=== PATIENT | male | born 1980 | race Caucasian/White ===

== ENCOUNTER 2022-06-17 12:13 | Emergency (ER) | payer OTHER ==
--- OUTSIDE RECORDS SUMMARY | 2022-06-17 12:16 | XMS REPORT | Continuity of Care Document ---
:1980 Author Organization [facility] t Address [address] [place] [address] Care Team Providers Name Role Phone PCP, PATIENT DOES NOT HAVE A Primary Care Physician Unavaila ble RADIOLOGY Attending Clinician Unavailable Radiology Attending Clinician Unavailable Doctor Unassigned, Bevier Attending Clinician Unavailable Adama HOWELL, Jana Mcintosh Attending Clinician [phone] Sade Mcgill RN Attending Clinician Unavailable Only, Ang Db Test Attending Clinician Unavailable Roxie Montenegro MD Attending Clinician KOKI RAVI Admitting Clinician Unavailable Payers Payer Name Policy Type Policy Number Effective Date Expiration Date Roland garcia [employer] [id number] 2018 OUT OF NETWORK 00:00:00 Problems Condition Condition Condition Status Onset Resolution Last Treating Co mments Source Name Details Category Date Date Treatment Clinician Date Neck pain Neck pain Disease Active Uni vers 11-06 ity of 00:: [address] No known No known Disease Kelse y active active Rad problems problems Allergies, Adverse Reactions, Alerts Allergy Allergy Status Severity Reaction(s) Onset Inactive Treating Comm ents Source Name Type Date Date Clinician NO KNOWN Drug Active Univers ALLERGIE Class [facility] Social History Social Habit Start Date Stop Date Quantity Comments Source Exposure to Yes Blessing laird SARS-CoV-2 (event) Tobacco use and 2018-11-06 2018-11-06 Current user Univers [facility] exposure 00:00:00 00:00:00 [facility] Sex Assigned At [birth year] Blessing griffin 00:00:00 00:00:00 Smoking Status Start Date Stop Date Source Never smoked tobacco Blessing Seyb old Former smoker 2018-11-06 00:00:00 2018-11-06 00:00:00 [facility] Medications Ordered Filled Start Stop Current Ordering Indication Dosage Frequency Signature Comments Components Source Medication Medication Date Date Medication? Clinician (SIG) Name Name Amoxicillin Yes [id number] 1{tbl} Take 1 Blessing -Pot 9-23 tablet by Seybold Clavulanate 00:00: mouth 2 875-125 MG 00 times oral Tablet daily Albuterol Yes [id number] 2{puff} Q6H Inhale 2 Blessing HFA 108 (90 9-[address] ybold Base) 00:00: the lungs MCG/ACT IN 00 every 6 AERS hours as needed for wheezing Azithromyci 2020- No [id number] Take 2 Blessing n 250 MG 9-23 09-29 tablets by Seyb old oral Tablet 00:00: 04:59 mouth on 00 : day 1 then 1 tablet by mouth daily for 4 days thereafter . cyclobenzap Yes [id number] 10mg Take 1 Univers rine 10 mg 8-03 tablet by ity of tablet 00:00: mouth 3 [place] (three) Medical times Branch daily as needed for Muscle Spasms. diclofenac Yes [id number] 75mg Take 1 U nivers 75 mg EC 8-03 tablet by ity of tablet 00:00: mouth 2 [place] (two) Medical times Branch daily with meals. cyclobenzap Yes [id number] 10mg Take 1 Univers rine 10 mg 8-03 tablet by ity of tablet 00:00: mouth 3 [place] (three) Medical times Branch daily as needed for Muscle Spasms. diclofenac Yes [id number] 75mg Take 1 U nivers 75 mg EC 8-03 tablet by ity of tablet 00:00: mouth 2 [place] (two) Medical times Branch daily with meals. cyclobenzap Yes [id number] 10mg Take 1 Univers rine 10 mg 8-03 tablet by ity of tablet 00:00: mouth 3 [place] (three) Medical times Branch daily as needed for Muscle Spasms. diclofenac Yes [id number] 75mg Take 1 U nivers 75 mg EC 8-03 tablet by ity of tablet 00:00: mouth 2 (two) Medical times Branch daily with meals. cyclobenzap 2018- Yes [id number] 10mg Take 1 Univers rine 10 mg 8-03 tablet by ity of tablet 00:00: mouth 3 (three) Medical times Branch daily as needed for Muscle Spasms. diclofenac 2018- Yes [id number] 75mg Take 1 U nivers 75 mg EC 8-03 tablet by ity of tablet 00:00: mouth 2 (two) Medical times Branch daily with meals. Immunizations Ordered Immunization Filled Immunization Date Status Commen ts Source Name Name Influenza Virus 2019-08-24 Completed Blessing gaby Vaccine, No Preserv, 00:00:00 age 6 months and up Procedures Procedure Date / Time Performed Performing Clinician Sourc e XR HIPS 2 VW RIGHT 2021-10-09 19:30:[address] [facility] [place] [place] ASSIGNMENT OF BENEFITS 2021-10-09 19:14:15 Doctor Unassigned, No [facility] Encounters Start End Encounter Admission Attending Care Care Encounter Source Date/Time Date/Time Type Type Clinicians Facility Department ID 2021-10-09 2021-10-09 Outpatient R RADIOLOGY [facility] [id number] Univers 13:17:51 23:59:00 ity of [facility] 2021-10-09 2021-10-09 Hospital Radiology [facility] [id number] Univers 13:15:00 23:59:00 Encounter ANGLEJULIANN [id number] ity [facility] [id number] [facility] [id number] [facility] 807 Branch 2021-10-09 2021-10-09 Outpatient R RADIOLOGY [facility] [id number] Univers 13:15:00 13:15:00 [id number] ity of [facility] 2021-10-09 2021-10-09 Orders Doctor VALENCIA [id number] Univers 00:00:00 00:00:00 Only Unassigned, YOLANDA [id number] ity of [facility] [id number] Wang [id number] [facility] 009 Branch 2021-07-18 2021-07-18 Telemedici Aroldo Galan [id number] Blessing 13:47:47 14:34:47 ne Jana Fierro [id number] Se gaby Mcintosh [id number] 2021-07-09 2021-07-09 Telephone ANNIE Mcgill [id number] Univers 00:00:00 00:00:00 Sade GUERRERO [id number] i ty [facility] [id number] Wang as [id number] [facility] 019 Branch 2021-07-08 2021-07-08 Laboratory Only, Ang Db Test [facility] [id number] Univers 14:43:10 14:53:10 Only [facility] [id number] ity [facility] [id number] Wang as Carlo?Blea [id number] La aleksandrapadmini [address] Medical Office Building 2021-07-08 2021-07-08 Outpatient R [facility] [id number] Univers 14:40:00 14:40:00 [id number] [facility] 2021-07-08 2021-07-08 Outpatient R [facility] [id number] Univers 14:40:00 14:40:00 [facility] Results This patient has no known results.
[2022-06-17 14:05] LABS: Absolute Lymphocytes (CBC) 2.4 K/uL (0.7-4.9); Hematocrit 45.7 % (39.6-49.0); Lymphocytes % 34.5 % (15.3-44.8); MCV 89.9 fL (80-100); MPV 8.3 fL (7.6-11.3); RBC Red Blood Cell Count 5.08 M/uL (4.33-5.43)
--- NOTE | 2022-06-17 14:07 | RAD REPORT ---
EXAM DESCRIPTION: CT - Head Brain Wo Cont - 06/17/2022 1:56 pm CLINICAL HISTORY: Neuro deficit, acute, stroke suspected COMPARISON: No comparisons TECHNIQUE: All CT scans are performed using dose optimization technique as appropriate and may inclu de automated exposure control or mA/KV adjustment according to patient size. FINDINGS: No intracranial hemorrhage, hydrocephalus or extra-axial fluid collection.No areas of brai n edema or evidence of midline shift. The paranasal sinuses and mastoids are clear. The calvarium is intact. IMPRESSION: No acute intracranial abnormality.
--- NOTE | 2022-06-17 14:21 | RAD REPORT ---
EXAM DESCRIPTION: RAD - Chest Single View - 06/17/2022 2:09 pm CLINICAL HISTORY: numbness Chest pain. COMPARISON: No comparisons FINDINGS: Portable technique limits examination quality. The lungs are grossly clear. The heart is normal in size. No displaced fractures. IMPRESSION: No acute intrathoracic process suspected.
[2022-06-17 14:25] LABS: BUN Blood Urea Nitrogen 14 mg/dL (7-18); Bicarbonate 30 mmol/L (21-32); Glomerular Filtration Rate 106 ml/min (=/>90); Glucose Level 99 mg/dL (74-106); Potassium 3.8 mmol/L (3.5-5.1); Sodium Level 137 mmol/L (136-145)
[2022-06-17 14:29] LABS: Troponin High Sensitivity < 3.0 pg/mL (<58.9)
[2022-06-17] MEDS ORDERED: METHYLPREDNISOLONE 125 MG INJ ONE (15:46)
[2022-06-17] MEDS ORDERED: KETOROLAC 30 MG/ML INJ ONE (15:46)
--- NOTE | 2022-06-17 17:22 | ER ---
Nurse's Notes [facility] Que Name: Guanako Maldonado Age: 41 yrs Sex: Male : 1980 Arrival Date: 06/17/2022 Time: 12:16 Bed 9 Private MD: Diagnosis: Radiculopathy, cervicothoracic region Presentation: 06/17 12:27 Chief complaint: Patient states: around 0805 started having intense pressure in neck; jh5 pt states he has numbness to left hand that radiates upward into his left armpit. Pt denies chest pain and chest pressure. Over the last year pt has numbness to hands and feet when he sits but can resituate himself and it resolves. Pt endorsing that numbness is moving up his left arm and slightly feels something in his left jaw. Coronavirus screen: Vaccine status: Patient reports being unvaccinated. Client denies travel out of the [place] in the last 14 days. Ebola Screen: Patient negative for fever greater than or equal to 101.5 degrees Fahrenheit, and additional compatible Ebola Virus Disease symptoms Patient denies exposure to infectious person. Patient denies travel to an Ebola-affected area in the 21 days before illness onset. Initial Sepsis Screen: Does the patient meet any 2 criteria? No. Patient's initial sepsis screen is negative. Does the patient have a suspected source of infection? No. Patient's initial sepsis screen is negative. Risk Assessment: Do you want to hurt yourself or someone else? Patient reports no desire to harm self or others. 12:27 Method Of Arrival: Ambulatory [facility] 12:27 Acuity: HUMBERTO 3 5 Triage Assessment: 12:31 General: Appears uncomfortable, Behavior is calm, cooperative, appropriate for age, jh5 anxious. Pain: Denies pain. Historical: - Allergies: 15:56 No Known Allergies; hb - Home Meds: 12:31 None [Active]; [facility] - Immunization history:: Adult Immunizations up to date. - Social history:: Smoking status: Patient reports use of chewing tobacco. Screenin:33 Abuse screen: Denies threats or abuse. Denies injuries from another. Nutritional 5 screening: No deficits noted. Tuberculosis screening: No symptoms or risk factors identified. Fall Risk None identified. Assessment: 14:00 General: Appears in no apparent distress. Behavior is calm, cooperative. hb 14:00 Pain: Denies pain. Neuro: Level of Consciousness is awake, alert, obeys commands, hb Oriented to person, place, time, situation. Cardiovascular: Patient's skin is warm and dry. Respiratory: Respiratory effort is even, unlabored, Respiratory pattern is regular, symmetrical. GI: No signs and/or symptoms were reported involving the gastrointestinal system. : No signs and/or symptoms were reported regarding the genitourinary system. EENT: No signs and/or symptoms were reported regarding the EENT system. Derm: Skin is pink, warm \T\ dry. Musculoskeletal: No signs and/or symptoms reported regarding the musculoskeletal system. 15:59 Reassessment: Patient appears in no apparent distress at this time. Patient and/or hb family updated on plan of care and expected duration. Pain level reassessed. Patient is alert, oriented x 3, equal unlabored respirations, skin warm/dry/pink. 17:01 Reassessment: Patient appears in no apparent distress at this time. Patient and/or hb family updated on plan of care and expected duration. Pain level reassessed. Patient is alert, oriented x 3, equal unlabored respirations, skin warm/dry/pink. Vital Signs: 12:27 BP 135 / 91; Pulse 78; Resp 16; Temp 98.7; Pulse Ox 100% ; Weight 111.13 kg; Height 6 jh5 ft. 0 in. (182.88 cm); Pain 0/10; 15:45 BP 128 / 80; Pulse 81; Resp 16; Pulse Ox 99% on R/A; Pain 0/10; hb 17:16 BP 132 / 82; Pulse 80; Resp 15; Pulse Ox 99% ; hb 12:27 Body Mass Index 33.23 (111.13 kg, 182.88 cm) 5 ED Course: 12:16 Patient arrived in ED. mr 12:20 Andrea Ramirez MD is Attending Physician. kdr 12:31 Triage completed. jh5 12:31 Arm band placed on left wrist. jh5 12:33 Patient has correct armband on for positive identification. 5 13:30 Ana Rosa Chun, BUBBA is Primary Nurse. hb 13:31 Bed in low position. Call light in reach. Side rails up X 1. Door closed. Noise mb7 minimized. 13:31 EKG done, by ED staff, reviewed by Andrea Ramirez MD. 7 13:41 Basic Metabolic Panel Sent. [facility] 13:41 CBC with Diff Sent. [facility] 13:41 Troponin HS Sent. [facility] 13:43 Client placed on continuous cardiac and pulse oximetry monitoring. NIBP monitoring mb7 applied. media monitor on. 13:58 CT Head Brain wo Cont In Process Unspecified. EDMS 14:11 XRAY Chest (1 view) In Process Unspecified. EDMS 17:30 No provider procedures requiring assistance completed. IV discontinued, intact, hb bleeding controlled, No redness/swelling at site. Administered Medications: 15:55 Drug: Ketorolac 15 mg Route: IVP; Site: left antecubital; hb 17:29 Follow up: Response: Medication administered at discharge. hb 15:55 Drug: SOLU-Medrol (methylPrednisoLONE) 60 mg Route: IVP; Site: left antecubital; hb 17:29 Follow up: Response: Medication administered at discharge. hb Medication: 14:00 VIS not applicable for this client. hb Outcome: 17:21 Discharge ordered by . kdr 17:30 Discharged to home ambulatory. hb 17:30 Condition: stable 17:30 Discharge instructions given to patient, Instructed on discharge instructions, follow up and referral plans. medication usage, Demonstrated understanding of instructions, follow-up care, medications, Prescriptions given X 2. 17:30 Patient left the ED. hb Signatures: Dispatcher [employer] EDPA Andrea Ramirez MD MD kdr Rivera, Mary mr Baxter, Heather, RN RN Ariadne Santiago RN RN [facility] Rosy Miramontes 7 Corrections: (The following items were deleted from the chart) 12:38 12:27 Chief complaint: Patient states: around 0805 started having intense pressure in 5 neck; pt states he has numbness to left hand that radiates upward into his left armpit. Pt denies chest pain and chest pressure. Over the last year pt has numbness to hands and feet when he sits jh 13:27 12:27 Chief complaint: Patient states: around 0805 started having intense pressure in [facility] neck; pt states he has numbness to left hand that radiates upward into his left armpit. Pt denies chest pain and chest pressure. Over the last year pt has numbness to hands and feet when he sits but can resituate himself and it resolves. jh5
--- NOTE | 2022-06-17 17:23 | EDPHYS ---
Physician Documentation [facility] Que Name: Guanako Maldonado Age: 41 yrs Sex: Male : 1980 Arrival Date: 06/17/2022 Time: 12:16 Bed 9 Private MD: ED Physician Andrea Ramirez HPI: 06/17 18:46 This 41 yrs old Male presents to ER via Ambulatory with complaints of Numbness Of Face, kdr Numbness Of Hand. 18:46 The patient's problem is reported as paresthesias, in left upper extremity. Onset: The kdr symptoms/episode began/occurred suddenly, at 08:00. Duration: The episode is continuous, the symptoms became persistent. Context: occurred at home, occurred while the patient was at rest, Light activity. The symptoms are alleviated by nothing. The symptoms are aggravated by nothing. Associated signs and symptoms: Pertinent positives: Left lateral arm pain in the ulnar distribution. Severity of symptoms: At their worst the symptoms were mild in the emergency department the symptoms are unchanged. Patient's baseline: Neuro: alert and fully oriented, Motor: no deficits, Ambulation: walks without assistance, Speech: normal, The patient has a previous history of None. The patient has not experienced similar symptoms in the past. The patient has not recently seen a physician. Patient states that after he returned home from dropping his kids off from school, he felt as pressure in his neck and began to have some numbness to the left medial aspect of his left arm or shoulder height slipped on her thigh. Historical: - Allergies: 15:56 No Known Allergies; hb - Home Meds: 12:31 None [Active]; jh5 - Immunization history:: Adult Immunizations up to date. - Social history:: Smoking status: Patient reports use of chewing tobacco. ROS: 06/18 10:24 Constitutional: Negative for fever, chills, and weight loss, Eyes: Negative for injury, kdr pain, redness, and discharge, ENT: Negative for injury, pain, and discharge, Cardiovascular: Negative for chest pain, palpitations, and edema, Respiratory: Negative for shortness of breath, cough, wheezing, and pleuritic chest pain, Abdomen/GI: Negative for abdominal pain, nausea, vomiting, diarrhea, and constipation, Back: Negative for injury and pain, : Negative for injury, bleeding, discharge, and swelling, MS/Extremity: Negative for injury and deformity, Skin: Negative for injury, rash, and discoloration, Psych: Negative for depression, anxiety, suicide ideation, homicidal ideation, and hallucinations, Allergy/Immunology: Negative for hives, rash, and allergies, Endocrine: Negative for neck swelling, polydipsia, polyuria, polyphagia, and marked weight changes, Hematologic/Lymphatic: Negative for swollen nodes, abnormal bleeding, and unusual bruising. Neck: Positive for pain with movement, stiffness, Patient began to have neck pressure early this morning that is since improved but with the residual of the paresthesia on the left upper extremity. Exam: 06/17 15:02 ECG was reviewed by the Attending Physician. kdr 06/18 10:24 Radiologist reports: Negative head CT kdr Constitutional: This is a well developed, well nourished patient who is awake, alert, and in no acute distress. Head/Face: Normocephalic, atraumatic. Eyes: Pupils equal round and reactive to light, extra-ocular motions intact. Lids and lashes normal. Conjunctiva and sclera are non-icteric and not injected. Cornea within normal limits. Periorbital areas with no swelling, redness, or edema. Neck: Trachea midline, no thyromegaly or masses palpated, and no cervical lymphadenopathy. Supple, full range of motion without nuchal rigidity, or vertebral point tenderness. No Meningismus. Chest/axilla: Normal chest wall appearance and motion. Nontender with no deformity. No lesions are appreciated. Cardiovascular: Regular rate and rhythm with a normal S1 and S2. No gallops, murmurs, or rubs. Normal PMI, no JVD. No pulse deficits. Respiratory: Lungs have equal breath sounds bilaterally, clear to auscultation and percussion. No rales, rhonchi or wheezes noted. No increased work of breathing, no retractions or nasal flaring. Abdomen/GI: Soft, non-tender, with normal bowel sounds. No distension or tympany. No guarding or rebound. No evidence of tenderness throughout. Back: No spinal tenderness. No costovertebral tenderness. Full range of motion. Skin: Warm, dry with normal turgor. Normal color with no rashes, no lesions, and no evidence of cellulitis. MS/ Extremity: Pulses equal, no cyanosis. Neurovascular intact. Full, normal range of motion. Neuro: Awake and alert, GCS 15, oriented to person, place, time, and situation. Cranial nerves II-XII grossly intact. Motor strength 5/5 in all extremities. Sensory grossly intact. Cerebellar exam normal. Normal gait. Psych: Awake, alert, with orientation to person, place and time. Behavior, mood, and affect are within normal limits. Neuro: The patient had subjective change in sensation on the medial aspect of his left upper extremity. On exam however I could not elicit a significant difference in actual sensation and perceived sensation with sharp dull testing.. Vital Signs: 06/17 12:27 BP 135 / 91; Pulse 78; Resp 16; Temp 98.7; Pulse Ox 100% ; Weight 111.13 kg; Height 6 [facility] ft. 0 in. (182.88 cm); Pain 0/10; 15:45 BP 128 / 80; Pulse 81; Resp 16; Pulse Ox 99% on R/A; Pain 0/10; hb 17:16 BP 132 / 82; Pulse 80; Resp 15; Pulse Ox 99% ; hb 12:27 Body Mass Index 33.23 (111.13 kg, 182.88 cm) [facility] MDM: 17:21 Patient medically screened. [facility] 17:23 ED course: MRI unavailable due to contamination from a prior patient. A special kdr cleaning crew was needed to be called out. They would not arrive for 4 hours.. 06/18 10:26 Data reviewed: vital signs, nurses notes, lab test result(s), EKG, radiologic studies. kdr Counseling: I had a detailed discussion with the patient and/or guardian regarding: the historical points, exam findings, and any diagnostic results supporting the discharge/admit diagnosis, lab results, radiology results, the need for outpatient follow up. 06/17 13:39 Order name: Basic Metabolic Panel; Complete Time: 15:30 [facility] 06/17 13:39 Order name: CBC with Diff; Complete Time: 15:30 [facility] 06/17 13:39 Order name: Troponin HS; Complete Time: 15:30 [facility] 06/17 13:39 Order name: Basic Metabolic Panel [facility] 06/17 13:39 Order name: CBC with Diff [facility] 06/17 13:39 Order name: Troponin HS [facility] 06/17 13:39 Order name: EKG; Complete Time: 13:39 [facility] 06/17 13:42 Order name: XRAY Chest (1 view); Complete Time: 15:30 [facility] 06/17 13:48 Order name: CT Head Brain wo Cont; Complete Time: 15:30 [facility] 06/17 13:39 Order name: IV Saline Lock; Complete Time: 13:40 [facility] 06/17 13:39 Order name: Cardiac monitoring; Complete Time: 13:39 [facility] 06/17 13:39 Order name: EKG - Nurse/Tech; Complete Time: 13:39 [facility] 06/17 13:39 Order name: IV Saline Lock; Complete Time: 13:39 [facility] 06/17 13:39 Order name: Labs collected and sent; Complete Time: 13:39 [facility] 06/17 13:39 Order name: O2 Per Protocol; Complete Time: 13:39 [facility] 06/17 13:39 Order name: O2 Sat Monitoring; Complete Time: 13:39 [facility] EC/23 15:02 Rate is 74 beats/min. Rhythm is regular, Normal Sinus Rhythm with No ectopy. QRS [place] kdr is Normal. [place] interval is normal. QRS interval is normal. QT interval is normal. No Q waves. Clinical impression: Normal ECG. Administered Medications: 15:55 Drug: Ketorolac 15 mg Route: IVP; Site: left antecubital; hb 17:29 Follow up: Response: Medication administered at discharge. hb 15:55 Drug: SOLU-Medrol (methylPrednisoLONE) 60 mg Route: IVP; Site: left antecubital; hb 17:29 Follow up: Response: Medication administered at discharge. Disposition Summary: 06/17/22 17:21 Discharge Ordered Location: Home kdr Problem: new kdr Symptoms: have improved kdr Condition: Stable kdr Diagnosis - Radiculopathy, cervicothoracic region kdr Followup: kdr - With: Private Physician - When: 2 - 3 days - Reason: If symptoms return, Further diagnostic work-up, Recheck today's complaints, Continuance of care, Re-evaluation by your physician Discharge Instructions: - Discharge Summary Sheet kdr - Neuropathic Pain kdr - Cervical Radiculopathy, [id number] kdr Forms: - Medication Reconciliation Form kdr - Thank You Letter kdr Prescriptions: - Ibuprofen 600 mg Oral Tablet - take 1 tablet by ORAL route every 6 hours As needed take with food; 15 tablet; kdr Refills: 0, Product Selection Permitted - Medrol (Jose Martin) 4 mg Oral Tablets, Dose Pack - take 1 tablet by ORAL route as directed - follow package instructions; 1 [facility] packet; Refills: 0, Product Selection Permitted Signatures: Dispatcher [employer] Andrea Soria MD MD [facility] Ana Rosa Chun, RN RN Ariadne Santiago RN RN 5 Corrections: (The following items were deleted from the chart) 13:39 13:39 Cardiac monitoring ordered. [place] [id number] 13:40 13:39 EKG - Nurse/Tech ordered. [place] [address] 13:40 13:39 Labs collected and sent ordered. [place] [address] 13:41 13:39 Oxygen Per Protocol ordered. [place] [address] 13:41 13:39 O2 Sat Monitoring ordered. [place] [address] 13:47 13:39 Chest Single View+RAD.RAD.BRZ ordered. [facility] EDVA
[2022-06-17 18:58] VITALS: TEMP 98.7
[2022-06-17 19:00] VITALS: O2SAT 99
[2022-06-17 19:06] VITALS: BP 132/82
--- NOTE | 2022-06-18 06:25 | EKG ---
Test Date: 2022-06-17 Test Time: 13:32:02 Fifth Hand: MB MEASUREMENT RESULTS: Intervals: Rate: 74 WV: 126 QRSD: 92 QT: 380 QTc: 421 Capac: P: 41 WV: 126 QRS: 62 T: 61 INTERPRETIVE STATEMENTS: Normal sinus rhythm Normal ECG No previous ECG available for comparison Electronically Signed On 06-18-22 06:23:55 CDT by Geovanny Woodruff
== END 2022-06-17 17:30 | disposition home or self-care (01) ==
LOC: ER 12:13
DX: M54.13 Radiculopathy, cervicothoracic region (principal)
CPT/HCPCS: 85025; 80048; 36415; 84484; 70450; 71045; J2930; 93005

== ENCOUNTER 2025-06-04 08:42 | Emergency (ER) | payer OTHER ==
--- OUTSIDE RECORDS SUMMARY | 2025-06-04 08:45 | XMS REPORT | Continuity of Care Document ---
Author Name Unknown Address [address] [facility] [address] [place] [address] [facility] Address [address] [facility] [address] [place] [address] Care Team Providers Care Maintenance Repairer Name Role Phone Pcp, Patient Does Not Have A Primary Care Physic mindi Ny Quesada DO Attending Clinician [phone] Testing, [facility] Pulmonary Function Attending Clinic mindi Unavailable [place] QUESADA Attending Clinician Unavailab [place] Bah Attending Clinician Unavailab le RADIOLOGY Attending Clinician Unavailable Radiology Attending Clinician Unavailable Doctor Unassigned, [place] Attending Clinician U sea Galan MD, Jana Mcintosh Attending Clinician [phone] Artem MAC, Sade Crain Attending Clinician Unavaila ble Only, Ang Db Test Attending Clinician UnavailRoxie Alonzo MD Attending Clinician [phone] KOKI RAVI Admitting Clinician Unavailable Payers Payer Name Policy Type Policy Number Effective Date Expirati on Date Source [employer] PPO [id number] 2023 00:00:00 Problems Condition Name Condition Details Condition Category Status Onset Date Resolution Date Last Treatment Date Treating Clinician Comments Source Neck pain Neck pain Disease Active 11-06 00:00: 00 [facility] No known active problems No known active problems Disease Blessing Leroy Allergies, Adverse Reactions, Alerts Allergy Name Allergy Type Status Severity Reaction(s) Onset Date Inactive Date Treating Clinician Comments Source NO KNOWN ALLERGIE S Drug Class Active [facility] Social History Social Habit Start Date Stop Date Quantity Comments Source Exposure to SARS-CoV-2 (event) Yes Blessing griffin History of tobacco use Current smoker [facility] Sexual orientation [facility] History of Social function 2025-02-09 00:00:00 2025-02-09 00:00:00 [facility] Tobacco use and exposure 2018-11-06 00:00:00 2018-11-06 00:00:00 User of smokeless tobacco [facility] Sex Assigned At 1980 00:00:00 1980 00:00:00 Blessing Leroy Smoking Status Start Date Stop Date Source Never smoked tobacco Blessing Leroy Ex-smoker 2018-11-06 00:00:00 2018-11-06 00:00:00 [facility] Medications Ordered Medication Name Filled Medication Name Start Date Stop Date Current Medication? Ordering Clinician Indication Dosage Frequency Signature (SIG) Comments Components Source Amoxicillin -Pot Clavulanate 875-125 MG oral Tablet 07-18 00:00: 00 Yes [id number] 1{tbl} Take 1 tablet by mouth 2 times daily Blessing Leroy Albuterol HFA 108 (90 Base) MCG/ACT IN AERS 07-18 00:00: 00 Yes [id number] 2{puff} Q6H Inhale 2 puffs into the lungs every 6 hours as needed for wheezing Blessing Leroy Azithromyci n 250 MG oral Tablet 07-18 00:00: 00 07-24 04:59 :00 No [id number] Take 2 tablets by mouth on day 1 then 1 tablet by mouth daily for 4 days thereafter . Blessing Leroy cyclobenzap rine 10 mg tablet 05-28 00:00: 00 Yes [id number] 10mg Take 1 tablet by mouth 3 (three) times daily as needed for Muscle Spasms. [facility] diclofenac 75 mg EC tablet 05-28 00:00: 00 Yes [id number] 75mg Take 1 tablet by mouth 2 (two) times daily with meals. [facility] Vital Signs Vital Name Observation Time Observation Value Comments S ource Systolic blood pressure 2025-02-09 14:03:00 117 mm[Hg] [facility] Diastolic blood pressure 2025-02-09 14:03:00 82 mm[Hg] [facility] Heart rate 2025-02-09 14:03:00 80 /min [facility] Body height 2025-02-09 14:03:00 182.9 cm pt stated height [facility] Body weight 2025-02-09 14:03:00 113.428 kg [facility] BMI 2025-02-09 14:03:00 33.91 kg/m2 [facility] Oxygen saturation in Arterial blood by Pulse oximetry 2025-02-09 14:03:00 95 /min [facility] Procedures Procedure Date / Time Performed Performing Clinicia n Source XR CHEST 2 VW 2025-02-09 15:24:00 [facility] RIGHT 2021-10-09 19:30:24 Vivienne Ravi [facility] ASSIGNMENT OF BENEFITS 2021-10-09 19:14:15 Docto r Unassigned, [place] [facility] Encounters Start Date/Time End Date/Time Encounter Type Admission Type Attending Clinicians Care Facility Care Department Encounter ID Source 2025-03-13 00:00:00 2025-03-13 09:04:53 Letter (Out) Ny Quesada [facility] [id number] 350.1.13.10 4.2.7.2.686 [id number] [facility] 2025-03-08 08:00:00 2025-03-08 09:30:00 Technical Supervisor Visit Testing, [facility] Pulmonary Function Ny Quesada Testing, [facility] Pulmonary Function [facility] [id number] 350.1.13.10 4.2.7.2.686 [id number] [facility] 2025-03-08 08:00:00 2025-03-08 08:00:00 Outpatient R [place] QUESADA SHIWAAdonis [facility] [id number] [facility] 2025-02-10 00:00:00 2025-02-10 12:20:41 Letter (Out) Ny Quesada [facility] 1.2.840.114 350.1.13.10 4.2.7.2.686 [id number] [facility] 2025-02-09 10:01:01 2025-02-09 23:59:00 Outpatient R [place] QUESADA SHIWAAdonis [facility] [id number] [facility] 2025-02-09 10:00:00 2025-02-09 23:59:00 Hospital Encounter Ny Quesada [facility] 1.2.840.114 350.1.13.10 4.2.7.2.686 [id number] [facility] 2025-02-09 00:00:00 2025-02-09 16:10:02 Telephone Vicky Quesadaadonis Franciscopadmini [facility] 1.2.840.114 350.1.13.10 4.2.7.2.686 [id number] [facility] 2025-02-09 09:00:00 2025-02-09 09:30:00 Office Visit Vicky Quesadaadonis Andrew [facility] 1.2.840.114 350.1.13.10 4.2.7.2.686 [id number] [facility] 2021-10-09 13:17:51 2021-10-09 23:59:00 Outpatient R RADIOLOGY [facility] [id number] [facility] 2021-10-09 13:15:00 2021-10-09 23:59:00 Hospital Encounter Radiology [facility] 1.2.840.114 350.1.13.10 4.2.7.2.686 [id number] [facility] 2021-10-09 00:00:00 2021-10-09 00:00:00 Orders Only Doctor Unassigned, [place] [facility] 1.2.840.114 350.1.13.10 4.2.7.2.686 [id number] [facility] 2021-07-18 13:47:47 2021-07-18 14:34:47 Telemedici eloy Galan Janadeborah Belldaniellakimberly Gilberts 1.2.840.114 350.1.13.13 1.2.7.2.686 [id number] Blessing gaby 2021-07-09 00:00:00 2021-07-09 00:00:00 Telephone Sade Mcgill [facility] 1.2840.114 350.1.13.10 4.2.7.2.686 [id number] [facility] 2021-07-08 14:43:10 2021-07-08 14:53:10 Laboratory Only Only, Ang Db Test Lan [facility] 1.2840.114 350.1.13.10 4.2.7.2.686 [id number] [facility] 2021-07-08 14:40:00 2021-07-08 14:40:00 Outpatient R [facility] [id number] [facility] Results Test Description Test Time Test Comments Results Resul t Comments Source XR Chest 2 vw 2025-01-24 7 20:37:46 EXAM:XR CHEST 2 VW HISTORY: 44 years-old Male; Indication for study: abnormal spirometry COMPARISON: None TECHNIQUE: Frontal and lateral chest radiographs were obtained. FINDINGS: Lungs/Pleura: Adequate lung volume. The lungs are clear with no focalconsolidation. There is no pleural effusion or pneumothorax. Heart/Mediastinum: The cardiomediastinal silhouette is normal. Bones and soft tissues: No acute abnormality detected. [facility] Notes Date/Time Note Provider Source 2025-02-09 16:08:23 Spirometry test results received from pt, placed in MD folder for review. We can keep the results per pt. Shira Diaz MA [facility]
[2025-06-04] MEDS ORDERED: ONDANSETRON 4 MG/2 ML VIAL ONE (09:10)
[2025-06-04] MEDS ORDERED: NA CHLORIDE 0.9% 1,000 ML ONE (09:10)
[2025-06-04] MEDS ORDERED: MORPHINE 4 MG/ML SYR ONE (09:10)
[2025-06-04 09:37] LABS: Absolute Lymphocytes (CBC) 3.0 K/uL (0.7-4.9); Hematocrit 45.9 % (39.6-49.0); Hemoglobin 15.8 g/dL (13.6-17.9); MCH 30.9 pg (27.0-35.0); MCHC 34.4 g/dL (32.0-36.0); MCV 90.0 fL (80-100); MPV 9.0 fL (7.6-11.3); Nucleated RBC Absolute Count 0.0 (0-0); Nucleated Red Blood Cells % 0.0 % (0-0); RBC Red Blood Cell Count 5.10 M/uL (4.33-5.43); White Blood Count 6.90 thou/uL (4.3-10.9)
[2025-06-04 09:45] LABS: ALT/SGPT 47.0 U/L (16-61); AST/SGOT 21.0 U/L (15-37); Albumin 4.1 g/dL (3.4-5.0); Albumin/Globulin Ratio 1.3 (1.1-1.8); Alkaline Phosphatase 42.0 U/L (45-117); Anion Gap 7.6 mEq/L (5.0-15.0); BUN Blood Urea Nitrogen 14.0 mg/dL (7-18); Globulin 3.1 g/dL (2.3-3.5); Glucose Level 117.0 mg/dL (74-106); Potassium 3.6 mEq/L (3.5-5.1)
--- NOTE | 2025-06-04 09:52 | RAD REPORT ---
EXAM: Scrotum Testicles HISTORY: 44 years Male PAIN COMPARISON: None TECHNIQUE: Multiplanar grayscale and color Doppler images were obtained in a testicular/scrotal ultra sound. Spectral analysis of the Doppler waveforms of the testicles were performed. FINDINGS: Right testicle: Normal in echogenicity. No focal mass. Normal internal flow. The right testicle saritha ures 4.8 x 2.9 x 2.7 cm with volume of 26 mL. Left testicle: Normal in echogenicity. No focal mass. Normal internal flow. The left testicle measur es 4.7 x 2.7 x 3.3 cm with volume of 21.3 mL. Right epididymis. Subcentimeter right epididymal cyst. Normal internal flow. Left epididymis. No epididymal cyst. Normal internal flow. Small bilateral hydroceles. No varicocele. Possible fat-containing left inguinal hernia. IMPRESSION: Small bilateral hydroceles. Bilateral testicular blood flow.
[2025-06-04] MEDS ORDERED: KETOROLAC 30 MG/ML INJ ONE (10:22)
[2025-06-04] MEDS ORDERED: FENTANYL CITR 100 MCG/2 ML ONE ×2 (10:22→12:20)
--- NOTE | 2025-06-04 10:24 | RAD REPORT ---
EXAMINATION: Abdomen Pelvis Wo Contrast CLINICAL INDICATION: Male, 44 years old.FLANK PAIN TECHNIQUE: CT abdomen and pelvis was performed, without IV contrast, as per department protocol. Axia l, sagittal and coronal reconstructions were obtained. One or more of the following dose reduction techniques were used: Automated exposure control, adjustment of the mA and/or kV according to the pat ient size, and/or iterative reconstruction. Unless otherwise specified, incidental findings do not require dedicated imaging follow-up. [id number]. IV CONTRAST: Not administered. COMPARISON: No prior exams FINDINGS: The lack of intravenous contrast limits the sensitivity of this exam for evaluation of solid visceral organs, vascular structures, and retroperitoneum. LOWER CHEST: No acute process identified.No significant pericardial effusion. UPPER GI: No significant abnormality. LIVER: Hepatic steatosis, but otherwise unremarkable. GALLBLADDER/BILE DUCTS: No biliary ductal dilatation.? PANCREAS: No mass, ductal dilation, or karen-pancreatic fluid. SPLEEN: Unremarkable. ADRENALS: No adrenal masses. KIDNEYS AND URETERS: Mild left-sided hydronephrosis.Limited evaluation for renal lesions in the absen ce of IV contrast.5 mm left renal calculus.3 mm stone left distal ureter proximal to the UVJ. ABDOMINAL AORTA AND OTHER VESSELS: Normal caliber aorta and IVC. PERITONEUM: No abnormal free fluid. No free air. LYMPH NODES: No pathologic lymphadenopathy. ABDOMINAL WALL: Unremarkable SMALL BOWEL/COLON: Small bowel has normal course and caliber. No colonic wall thickening or pericolon ic inflammatory changes.Normal appendix. URINARY BLADDER: Underdistended but grossly unremarkable. REPRODUCTIVE ORGANS: No pathologic process. MUSCULOSKELETAL: No acute or suspicious osseous abnormality. ADDITIONAL FINDINGS: None. IMPRESSION: Mild left-sided hydronephrosis secondary to a 3 mm stone in the left distal ureter.
[2025-06-04 11:43] LABS: Sqamous Epithelial <5 /HPF (None Seen); Urine Crystals Unidentified Few /HPF (None Seen); Urine Micro Reflex YN NO BILL MICROSCOPIC
[2025-06-04] MEDS ORDERED: TAMSULOSIN 0.4 MG SR CAP ONE (12:20)
--- NOTE | 2025-06-04 13:04 | ER ---
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 Coronavirus screen: At this time, the client does not indicate any symptoms associated with coronavirus-19. Ebola Screen: No symptoms or risks identified at this time. Initial Sepsis Screen: Does the patient meet any 2 criteria? No. Patient's initial sepsis screen is negative. Does the patient have a suspected source of infection? No. Patient's initial sepsis screen is negative. Risk Assessment: Do you want to hurt yourself or someone else? Patient reports no desire to harm self or others. Onset of symptoms was June 04, 2025. 08:58 Method Of Arrival: Ambulatory [facility] 08:58 Acuity: HUMBERTO 2 jl7 Triage Assessment: 09:01 General: Appears in no apparent distress. uncomfortable, Behavior is cooperative, jl7 appropriate for age, anxious. Pain: Complains of pain in left testicle Pain radiates to posterior aspect of left lateral abdomen and left lower quadrant Pain currently is 8 out of 10 on a pain scale. Quality of pain is described as squeezing, Pain began gradually. GI: Reports nausea. : Reports pain in left testicle. Historical: - Allergies: 09: No Known Allergies; jl7 - Home Meds: 09: None [Active]; jl7 - PMHx: 09: None; jl7 - PSHx: 09: None; jl7 - Immunization history:: Adult Immunizations unknown. - Infectious Disease History:: Denies. - Social history:: Smoking status: Patient reports use of chewing tobacco. Screenin: [facility] ED Fall Risk Assessment (Adult) History of falling in the last 3 months, bp including since admission No falls in past 3 months (0 pts) Confusion or Disorientation No (0 pts) Intoxicated or Sedated No (0 pts) Impaired Gait No (0 pts) Mobility Assist Device Used No (0 pt) Altered Elimination No (0 pt) Score/Fall Risk Level 0 - 2 = Low Risk Oriented to surroundings. Abuse screen: Denies threats or abuse. Denies injuries from another. Nutritional screening: No deficits noted. Tuberculosis screening: No symptoms or risk factors identified. Assessment: 09:01 General: SEE TRIAGE NOTE. bp Vital Signs: 08:58 BP 146 / 90; Pulse 75; Resp 17; Temp 97.8; Pulse Ox 97% ; Weight 108.86 kg; Height 6 jl7 ft. 0 in. ; Pain 8/10; 13:14 BP 137 / 85; Pulse 77; Resp 16; Pulse Ox 98% ; bp 08:58 Body Mass Index 32.55 (108.86 kg, 182.88 cm) jl7 08:58 Pain Scale: Adult 7 ED Course: 08:47 Patient arrived in ED. cj3 08:48 Gloria Nolen MD is Attending Physician. sw6 09:01 Triage completed. jl7 09:01 Patient has correct armband on for positive identification. bp 09:03 Arm band placed on right wrist. jl7 09:08 Hernandez Sims, BUBBA is Primary Nurse. bp 09:12 Initial lab(s) drawn, by ED staff, sent to lab. Inserted saline lock: 20 gauge in right em1 antecubital area, using aseptic technique. Blood collected. Flushed with 10 mL NS. 09:38 US Scrotum Testicles In Process Unspecified. EDMS 10:16 CT Abd/Pelvis - Without Contrast In Process Unspecified. EDMS 13:03 Zac Phillips MD is Referral Physician. sw6 13:15 No provider procedures requiring assistance completed. IV discontinued, intact, bp bleeding controlled, No redness/swelling at site. Pressure dressing applied. Administered Medications: 09:14 Drug: Ondansetron IVP 4 mg IVP once; over 2 minutes Route: IVP; Site: right antecubital;bp 13:16 Follow up: Response: No adverse reaction bp 09:14 Drug: morphine IVP or IV 4 mg IVP once over 4 mins Route: IVP; Infused Over: 4 mins; bp Site: right antecubital; 13:16 Follow up: Response: No adverse reaction bp 09:14 Drug: NS 0.9% IV 1000 ml IV at 1 bolus Per protocol; to be given as a bolus over 60 bp minutes Route: IV; Rate: 1 bolus; Site: right antecubital; 13:16 Follow up: IV Status: Completed infusion bp 10:20 Drug: fentaNYL (PF) IVP 50 mcg IVP once Route: IVP; Site: right antecubital; bp 13:15 Follow up: Response: No adverse reaction bp 10:20 Drug: Ketorolac IVP 30 mg IVP once Route: IVP; Site: right antecubital; bp 13:15 Follow up: Response: No adverse reaction bp 11:11 CANCELLED (not needed): ns 0.9% 1000 ml IV at 1 bolus Per protocol; to be given as a sw6 bolus over 60 minutes 12:28 Drug: Flomax PO 0.4 mg PO once Route: PO; bp 13:15 Follow up: Response: No adverse reaction bp 12:28 Drug: fentaNYL (PF) IVP 50 mcg IVP once Route: IVP; Site: right antecubital; bp 13:15 Follow up: Response: No adverse reaction bp Medication: 09:01 VIS not applicable for this client. bp Outcome: 13:04 Discharge ordered by . christa 13:15 Discharged to home ambulatory, bp 13:15 Condition: stable 13:15 Discharge instructions given to patient, Instructed on discharge instructions, follow up and referral plans. medication usage, Demonstrated understanding of instructions, follow-up care, medications, Prescriptions given X 2, 13:16 Patient left the ED. bp Signatures: Dispatcher [employer] EDBakari Zaidi em1 Malick Arvizu RN RN jl7 Hernandez Sims RN RN bp Gloria Nolen MD MD sw6 Kourtney Daly cj3
--- NOTE | 2025-06-04 13:04 | EDPHYS ---
Physician Documentation [facility] Name: Guanako Maldonado Age: 44 yrs Sex: Male : 1980 Arrival Date: 06/04/2025 Time: 08:42 Bed 19 Private MD: ED Physician Gloria Nolen HPI: 06/04 09:01 This 44 yrs old Male presents to ER via Ambulatory with complaints of sw6 Testicular Pain, Nausea, Back Pain. 09:01 The patient presents with scrotal pain, of the left side. Onset: The symptoms/episode sw6 began/occurred 0800 today. Modifying factors: the symptoms are aggravated by sitting down. Associated signs and symptoms: Pertinent positives: nausea, Pertinent negatives: dysuria, fever, hematuria, vomiting. Severity of symptoms: At their worst the symptoms were severe, in the emergency department the symptoms are unchanged. The patient has not experienced similar symptoms in the past. The patient presents from home for evaluation for left testicular pain. He reports he had a little bit of discomfort in his left testicle starting around 5 AM today when he was driving to work. He reports when he got to work that pain resolved. He reports around 8 AM the pain started up again and became very severe. He denies any injury or trauma. 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 No dysuria or hematuria. He said some nausea but no vomiting. No fevers or chills. No diarrhea. No medication taken prior to arrival. No history of kidney stones in the past or in his family. No back pain. He denies any injury or trauma. No history of high blood pressure or diabetes. Here for evaluation.. Historical: - Allergies: 09: No Known Allergies; jl7 - Home Meds: 09: None [Active]; jl7 - PMHx: 09: None; jl7 - PSHx: 09: None; jl7 - Immunization history:: Adult Immunizations unknown. - Infectious Disease History:: Denies. - Social history:: Smoking status: Patient reports use of chewing tobacco. ROS: 09:01 Constitutional: Negative for fever, chills, and weight loss, Cardiovascular: Negative sw6 for chest pain, palpitations, and edema, Respiratory: Negative for shortness of breath, cough, wheezing, and pleuritic chest pain, Back: Negative for injury and pain, 09:01 Abdomen/GI: Positive for nausea, Negative for abdominal pain, vomiting, diarrhea, 09:01 : Positive for testicular pain 09:01 All other systems are negative, Exam: 09:01 Constitutional: This is a well developed, well nourished patient who is awake, alert, sw6 and in no acute distress. Chest/axilla: Normal chest wall appearance and motion. Nontender with no deformity. No lesions are appreciated. Cardiovascular: Regular rate and rhythm with a normal S1 and S2. No gallops, murmurs, or rubs. Normal PMI, no JVD. No pulse deficits. Respiratory: Lungs have equal breath sounds bilaterally, clear to auscultation and percussion. No rales, rhonchi or wheezes noted. No increased work of breathing, no retractions or nasal flaring. Abdomen/GI: Soft, non-tender, with normal bowel sounds. No distension or tympany. No guarding or rebound. No evidence of tenderness throughout. 09:01 Skin: Warm, dry with normal turgor. Normal color with no rashes, no lesions, and no evidence of cellulitis. Neuro: Awake and alert, GCS 15, oriented to person, place, time, and situation. Cranial nerves II-XII grossly intact. Motor strength 5/5 in all extremities. Sensory grossly intact. Cerebellar exam normal. Normal gait. Psych: Awake, alert, with orientation to person, place and time. Behavior, mood, and affect are within normal limits. 09:01 : CVA tenderness, is absent, Male external genitalia: Left testicle is swollen and tender and noted to be high riding when compared to the right testicle which is not tender or swollen., Vital Signs: 08:58 BP 146 / 90; Pulse 75; Resp 17; Temp 97.8; Pulse Ox 97% ; Weight 108.86 kg; Height 6 jl7 ft. 0 in. ; Pain 8/10; 13:14 BP 137 / 85; Pulse 77; Resp 16; Pulse Ox 98% ; bp 08:58 Body Mass Index 32.55 (108.86 kg, 182.88 cm) jl7 08:58 Pain Scale: Adult jl7 MDM: 09:01 Differential diagnosis: Testicular torsion, UTI, renal colic. Data reviewed: [facility], [facility] signs, nurses notes. 09:07 Medical Screening Exam initiated 09:59 ED course: The patient is doing well in the ER. His scrotal ultrasound shows bilateral sw6 hydroceles as well as the possibility of an inguinal hernia but no evidence of testicular torsion. Will obtain a CT of his abdomen pelvis today for possible inguinal hernia as well as a kidney stone. His urinalysis is also pending at present time.. 13:02 Data reviewed: lab test result(s), CBC, electrolytes, urinalysis, hematuria, radiologic sw6 studies, CT scan. ED course: The patient is doing well hernia. His pain is much improved with the medications given earlier today. His laboratory studies are unremarkable. His urinalysis showed hematuria but no signs of infection. The CT of his abdomen and pelvis shows a left 3 mm UVJ stone. He remained stable here in the ER and is okay for discharge home with outpatient urology follow-up in 1 week.. 06/04 08:59 Order name: CBC with Diff; Complete Time: 09:47 06/04 09:48 Interpretation: Within normal limits: WBC 6.90; HGB 15.8; HCT 45.9; PLT 268. 06/04 08:59 Order name: CMP; Complete Time: 09:47 06/04 09:47 Interpretation: Within normal limits: CRE 1.08. 06/04 09:00 Order name: UA W/ Microscopic; Complete Time: 11:52 06/04 11:52 Interpretation: Normal except: Hematuria. 06/04 08:59 Order name: US Scrotum Testicles; Complete Time: 09:56 06/04 09:56 Interpretation: No acute disease except: Bilateral hydroceles. 06/04 09:58 Order name: CT Abd/Pelvis - Without Contrast; Complete Time: 10:29 06/04 10:29 Interpretation: No acute disease except: Ureteral stone. 06/04 09:00 Order name: IV Saline Lock; Complete Time: 09:11 06/04 09:00 Order name: Labs collected and sent; Complete Time: 09:11 Administered Medications: 09:14 Drug: Ondansetron IVP 4 mg IVP once; over 2 minutes Route: IVP; Site: right antecubital;bp 13:16 Follow up: Response: No adverse reaction bp 09:14 Drug: morphine IVP or IV 4 mg IVP once over 4 mins Route: IVP; Infused Over: 4 mins; bp Site: right antecubital; 13:16 Follow up: Response: No adverse reaction bp 09:14 Drug: NS 0.9% IV 1000 ml IV at 1 bolus Per protocol; to be given as a bolus over 60 bp minutes Route: IV; Rate: 1 bolus; Site: right antecubital; 13:16 Follow up: IV Status: Completed infusion bp 10:20 Drug: fentaNYL (PF) IVP 50 mcg IVP once Route: IVP; Site: right antecubital; bp 13:15 Follow up: Response: No adverse reaction bp 10:20 Drug: Ketorolac IVP 30 mg IVP once Route: IVP; Site: right antecubital; bp 13:15 Follow up: Response: No adverse reaction bp 11:11 CANCELLED (not needed): ns 0.9% 1000 ml IV at 1 bolus Per protocol; to be given as a sw6 bolus over 60 minutes 12:28 Drug: Flomax PO 0.4 mg PO once Route: PO; bp 13:15 Follow up: Response: No adverse reaction bp 12:28 Drug: fentaNYL (PF) IVP 50 mcg IVP once Route: IVP; Site: right antecubital; bp 13:15 Follow up: Response: No adverse reaction bp Disposition Summary: 06/04/25 13:04 Discharge Ordered Notes: Location: Home sw6 Problem: new sw6 Symptoms: have improved sw6 Condition: Stable sw6 Diagnosis - Hydrocele, unspecified sw6 - Kidney Stone/ Calculus in urethra sw6 Followup: sw6 - With: Zac Phillips MD - When: 5 - 6 days - Reason: Continuance of care Discharge Instructions: - Discharge Summary Sheet sw6 - Kidney Stones, [id number]-[id number] sw6 - Hydrocele, Adult sw6 Forms: - Medication Reconciliation Form sw6 - Antibiotic Education sw6 - Prescription Opioid Use sw6 - Patient Portal Instructions sw6 - Leadership Thank You Letter sw6 Prescriptions: - Flomax 0.4 mg Oral capsule - take 1 capsule ORAL route daily; 14 capsule; Refills: 0, Product Selection sw6 Permitted - ketorolac 10 mg Oral tablet - take 1 tablet ORAL route every 6 hours as needed for pain; maximum total sw6 duration of 5 days from all oral, intranasal, or parenteral formulations; 25 tablet; Refills: 0, Product Selection Permitted Signatures: Dispatcher [employer] EDMalick Logan RN RN jl7 Hernandez Sims RN RN bp Gloria Nolen MD MD sw6 Corrections: (The following items were deleted from the chart) 09:00 09:00 UA W/ Microscopic+U.LAB.BRZ ordered. EDMS EDMS 11:11 11:10 NS 0.9% IV 1000 ml IV at 1 bolus Per protocol; to be given as a bolus over 60 sw6 minutes ordered. sw6
[2025-06-04 13:34] VITALS: BP 146/90; TEMP 97.8; O2SAT 97
== END 2025-06-04 13:16 | disposition home or self-care (01) ==
LOC: ER 08:42
DX: N43.3 Hydrocele, unspecified (principal); N20.0 Calculus of kidney; N21.1 Calculus in urethra; F17.220 Nicotine dependence, chewing tobacco, uncomplicated
CPT/HCPCS: 96361; 85025; 81001; 36415; 80053; 74176; 76870; 96375; 96374; 99284; J3010 ×2; J2405; J7030